=== PATIENT | female | born 1980 | race Caucasian/White ===

== ENCOUNTER 2020-11-07 22:05 | Inpatient (IN) | payer OTHER ==
[2020-11-07] MEDS ORDERED: SODIUM CHLORIDE 1,000 ML IV STA (22:48)
[2020-11-07] MEDS ORDERED: ONDANSETRON 4 MG/2 ML VIAL IVPUSH ONE (22:49)
[2020-11-07] MEDS ORDERED: morphine CARPU-JECT 4 MG/1 ML DISP.SYRIN IVPUSH ONE (22:49)
[2020-11-07] MEDS ORDERED: morphine SULFATE 4 MG/ML VIAL ONE (22:58)
[2020-11-07] MEDS ORDERED: ONDANSETRON 4 MG/2 ML VIAL ONE (22:59)
[2020-11-07 23:19] LABS: HEMATOCRIT 34.9 % (32.4-45.2); HEMOGLOBIN 13.6 GM/dL (10.7-15.3); MCH 34.5 pg (25.7-33.7); MCHC 38.9 g/dl (32.0-36.0); MEAN CELL VOLUME 88.8 fl (80-96); PLATELET COUNT 490 K/MM3 (134-434); RBC 3.93 M/mm3 (3.60-5.2); RDW 13.1 % (11.6-15.6); WHITE BLOOD COUNT 11.3 K/mm3 (4.0-10.0)
[2020-11-07 23:28] LABS: URINE APPEARANCE CLEAR; URINE BILIRUBIN NEGATIVE (NEGATIVE); URINE COLOR YELLOW; URINE GLUCOSE (UA) NEGATIVE (NEGATIVE); URINE KETONE NEGATIVE (NEGATIVE); URINE LEUK ESTERASE NEGATIVE (NEGATIVE); URINE NITRITE NEGATIVE (NEGATIVE); URINE PROTEIN NEGATIVE (NEGATIVE); URINE UROBILINOGEN 0.2 mg/dL (0.2-1.0)
[2020-11-07 23:57] LABS: INR 0.88 (0.83-1.09); PROTHROMBIN TIME (PATIENT) 10.7 SEC (9.7-13.0)
[2020-11-08 00:31] LABS: CHLORIDE 92 mmol/L (98-107); SODIUM 127 mmol/L (136-145)
[2020-11-08 00:37] LABS: ALBUMIN 3.3 g/dl (3.4-5.0); ANION GAP 12 MMOL/L (8-16); CO2 23 mmol/L (21-32)
[2020-11-08 00:38] LABS: GLUCOSE,RANDOM 185 mg/dL (74-106); LIPASE 453 U/L (73-393)
[2020-11-08 00:41] LABS: BILIRUBIN,TOTAL 1.1 mg/dL (0.2-1); CREATININE 0.7 mg/dL (0.55-1.3)
[2020-11-08 01:36] LABS: ALK PHOS 57 U/L (45-117); BLOOD UREA NITROGEN 11.9 mg/dL (7-18); CALCIUM 8.2 mg/dL (8.5-10.1); TOT PROT 7.5 g/dl (6.4-8.2)
[2020-11-08] MEDS ORDERED: morphine CARPU-JECT 4 MG/1 ML DISP.SYRIN IVPUSH ONE (02:25)
[2020-11-08] MEDS ORDERED: SODIUM CHLORIDE 0.9% 500 ML INFUS.BAG IV ONE (02:38)
[2020-11-08] MEDS ORDERED: morphine SULFATE 4 MG/ML VIAL ONE (03:39)
[2020-11-08] MEDS ORDERED: KETOROLAC TROMETHAMINE 15 MG/ML VIAL IVPUSH ONE (04:34)
[2020-11-08] MEDS ORDERED: SODIUM CHLORIDE 1,000 ML IV SCH ×2 (04:45→06:02)
[2020-11-08 05:46] LABS: TRIGLYCERIDES > 4000 mg/dL (0-150)
[2020-11-08 05:59] LABS: CHLORIDE 97 mmol/L (98-107); POTASSIUM 4.2 mmol/L (3.5-5.1); SODIUM 132 mmol/L (136-145)
[2020-11-08 06:01] LABS: ALBUMIN 2.9 g/dl (3.4-5.0); CALCIUM 7.5 mg/dL (8.5-10.1); GLUCOSE,RANDOM 167 mg/dL (74-106)
[2020-11-08 06:02] LABS: ANION GAP 7 MMOL/L (8-16); CO2 28 mmol/L (21-32); MAGNESIUM 1.6 mg/dL (1.8-2.4)
[2020-11-08] MEDS ORDERED: MAGNESIUM SULF 50% (8.12 MEQ/2 ML-1 GM VIAL) IVPB ONE (06:05)
[2020-11-08 06:06] LABS: CREATININE 0.5 mg/dL (0.55-1.3); PHOSPHOROUS 4.3 mg/dL (2.5-4.9)
[2020-11-08 06:07] LABS: ALK PHOS 48 U/L (45-117); BILIRUBIN,TOTAL 0.7 mg/dL (0.2-1); LDL CHOLESTEROL (ONLY SJRH) 87 mg/dL (5-100)
[2020-11-08 06:08] LABS: HDL CHOLESTEROL 35 mg/dL (40-60)
[2020-11-08] MEDS ORDERED: MORPHINE SULFATE 2 MG/ML VIAL IVPUSH PRN (06:09)
[2020-11-08] MEDS ORDERED: ONDANSETRON 4 MG/2 ML VIAL IVPUSH PRN (06:09)
[2020-11-08] MEDS ORDERED: INSULIN DRIP - PLEASE ORDER UNDER SETS NR ONE (06:12)
[2020-11-08] MEDS ORDERED: DEXTROSE 50%-WATER - 25 GM/50 ML VIAL IVPUSH PRN (06:13)
[2020-11-08] MEDS ORDERED: MAGNESIUM SULF 50% (8.12 MEQ/2 ML-1 GM VIAL) ONE (06:14)
[2020-11-08] MEDS ORDERED: LACTATED RINGERS SOLUTION 1,000 ML/1,000 ML INFUS.BAG IV SCH (06:15)
[2020-11-08 06:18] LABS: HEMATOCRIT 29.4 % (32.4-45.2); HEMOGLOBIN 11.9 GM/dL (10.7-15.3); MCH 35.7 pg (25.7-33.7); MCHC 40.3 g/dl (32.0-36.0); MEAN CELL VOLUME 88.4 fl (80-96); MEAN PLT VOLUME 10.7 fl (7.5-11.1); PLATELET COUNT 620 K/MM3 (134-434); RBC 3.33 M/mm3 (3.60-5.2); RDW 13.9 % (11.6-15.6); WHITE BLOOD COUNT 12.6 K/mm3 (4.0-10.0)
[2020-11-08 06:19] LABS: BLOOD UREA NITROGEN 10.1 mg/dL (7-18); CHOLESTEROL 393 mg/dL (50-200); TOT PROT 6.5 g/dl (6.4-8.2); TRIGLYCERIDES > 4000 mg/dL (0-150)
[2020-11-08] MEDS ORDERED: MORPHINE SULFATE 2 MG/ML VIAL ONE ×2 (07:40→11:16)
[2020-11-08] MEDS ORDERED: DEXTROSE 5%-LACTATED RINGERS 1,000 ML IV SCH (08:30)
[2020-11-08] MEDS: D5-LR+20 MEQ KCL - 20 MEQ/1,000 ML INFUS.BAG IV SCH (09:00)
[2020-11-08] MEDS: INSULIN REGULAR 100 UNITS in SODIUM CHLORIDE 99 ML IVPB SCH (09:24)
[2020-11-08] MEDS ORDERED: PANTOPRAZOLE SODIUM 40 MG VIAL IVPUSH SCH (10:00)
[2020-11-08 10:44] LABS: CHLORIDE 96 mmol/L (98-107); POTASSIUM 4.1 mmol/L (3.5-5.1); SODIUM 130 mmol/L (136-145)
[2020-11-08 10:46] LABS: ANION GAP 8 MMOL/L (8-16); CO2 26 mmol/L (21-32); GLUCOSE,RANDOM 156 mg/dL (74-106)
[2020-11-08 10:50] LABS: CREATININE 0.5 mg/dL (0.55-1.3)
[2020-11-08 11:00] LABS: BLOOD UREA NITROGEN 8.6 mg/dL (7-18); TRIGLYCERIDES > 4000 mg/dL (0-150)
[2020-11-08] MEDS: morphine SULFATE 4 MG/ML VIAL IVPUSH PRN ×3 (11:15→21:46)
[2020-11-08] MEDS: ENOXAPARIN NA (PORCINE) 40 MG/0.4 ML DISP.SYRIN SQ SCH (12:38)
[2020-11-08] MEDS: METOCLOPRAMIDE HCL INJECTION 10 MG/2 ML VIAL IVPUSH PRN (16:09)
[2020-11-08] MEDS ORDERED: METOCLOPRAMIDE HCL INJECTION 10 MG/2 ML VIAL ONE (16:12)
[2020-11-08 17:07] VITALS: BMI 26.4
[2020-11-08] MEDS: MUPIROCIN 2% TOPICAL OINTMENT FOR DECOLONIZATION NS SCH ×2 (17:13→23:17)
[2020-11-08] MEDS: CHLORHEXIDINE GLUCONATE 4% CLEANSER FOR DECOLONIZATION TP SCH (21:47)
[2020-11-09] MEDS: METOCLOPRAMIDE HCL INJECTION 10 MG/2 ML VIAL IVPUSH PRN (00:15)
[2020-11-09 07:30] LABS: HEMATOCRIT 29.8 % (32.4-45.2); HEMOGLOBIN 10.4 GM/dL (10.7-15.3); MCH 31.1 pg (25.7-33.7); MCHC 34.9 g/dl (32.0-36.0); MEAN CELL VOLUME 89.1 fl (80-96); MEAN PLT VOLUME 7.9 fl (7.5-11.1); PLATELET COUNT 345 K/MM3 (134-434); RBC 3.34 M/mm3 (3.60-5.2); WHITE BLOOD COUNT 7.4 K/mm3 (4.0-10.0)
[2020-11-09] MEDS: D5-LR+20 MEQ KCL - 20 MEQ/1,000 ML INFUS.BAG IV SCH ×2 (07:52→10:39)
[2020-11-09 08:00] LABS: POTASSIUM 4.1 mmol/L (3.5-5.1)
[2020-11-09 08:05] LABS: ALBUMIN 2.8 g/dl (3.4-5.0); BLOOD UREA NITROGEN 3.3 mg/dL (7-18); CALCIUM 8.1 mg/dL (8.5-10.1); MAGNESIUM 1.7 mg/dL (1.8-2.4)
[2020-11-09 08:08] LABS: CREATININE 0.5 mg/dL (0.55-1.3); PHOSPHOROUS 3.2 mg/dL (2.5-4.9)
[2020-11-09 08:09] LABS: BILIRUBIN,TOTAL 0.8 mg/dL (0.2-1)
[2020-11-09] MEDS ORDERED: MAGNESIUM SULF 50% (8.12 MEQ/2 ML-1 GM VIAL) IVPB ONE (08:19)
[2020-11-09] MEDS ORDERED: MAGNESIUM 1GM/D5W - 1 GM/100 ML IVPB IVPB ONE (08:30)
[2020-11-09] MEDS: MUPIROCIN 2% TOPICAL OINTMENT FOR DECOLONIZATION NS SCH ×2 (10:17→22:05)
[2020-11-09] MEDS: ENOXAPARIN NA (PORCINE) 40 MG/0.4 ML DISP.SYRIN SQ SCH (10:17)
[2020-11-09] MEDS: morphine SULFATE 4 MG/ML VIAL IVPUSH PRN ×4 (10:23→22:28)
[2020-11-09] MEDS: INSULIN REGULAR 100 UNITS in SODIUM CHLORIDE 99 ML IVPB SCH (18:50)
[2020-11-09] MEDS: CHLORHEXIDINE GLUCONATE 4% CLEANSER FOR DECOLONIZATION TP SCH (22:05)
[2020-11-10] MEDS: morphine SULFATE 4 MG/ML VIAL IVPUSH PRN ×5 (06:30→22:01)
[2020-11-10 07:26] LABS: BASO % 0.3 % (0-2.0); EOS % 5.1 % (0-4.5); HEMATOCRIT 30.8 % (32.4-45.2); HEMOGLOBIN 10.2 GM/dL (10.7-15.3); LYMPH % 26.2 % (8-40); MCH 29.5 pg (25.7-33.7); MEAN CELL VOLUME 89.5 fl (80-96); MONO % 8.3 % (3.8-10.2); NEUT % 60.1 % (42.8-82.8); PLATELET COUNT 352 K/MM3 (134-434); RBC 3.44 M/mm3 (3.60-5.2); RDW 13.4 % (11.6-15.6); WHITE BLOOD COUNT 6.3 K/mm3 (4.0-10.0)
[2020-11-10 07:28] LABS: POTASSIUM 4.2 mmol/L (3.5-5.1)
[2020-11-10 07:30] LABS: CALCIUM 8.7 mg/dL (8.5-10.1)
[2020-11-10 07:31] LABS: ALBUMIN 2.9 g/dl (3.4-5.0); MAGNESIUM 1.8 mg/dL (1.8-2.4)
[2020-11-10 07:34] LABS: CREATININE 0.4 mg/dL (0.55-1.3)
[2020-11-10 07:35] LABS: BILIRUBIN,TOTAL 0.3 mg/dL (0.2-1)
[2020-11-10 07:36] LABS: TOT PROT 6.1 g/dl (6.4-8.2)
[2020-11-10 08:38] LABS: BLOOD UREA NITROGEN 2.5 mg/dL (7-18)
[2020-11-10] MEDS: INSULIN REGULAR 100 UNITS in SODIUM CHLORIDE 99 ML IVPB SCH (10:27)
[2020-11-10] MEDS: ENOXAPARIN NA (PORCINE) 40 MG/0.4 ML DISP.SYRIN SQ SCH (10:28)
[2020-11-10] MEDS: MUPIROCIN 2% TOPICAL OINTMENT FOR DECOLONIZATION NS SCH ×2 (10:28→21:19)
[2020-11-10] MEDS: D5-LR+20 MEQ KCL - 20 MEQ/1,000 ML INFUS.BAG IV SCH ×3 (10:29→22:40)
[2020-11-10] MEDS ORDERED: ACETAMINOPHEN 1000 MG/100 ML VIAL (NON FORMULARY) IVPB ONE (13:00)
[2020-11-10] MEDS: CHLORHEXIDINE GLUCONATE 4% CLEANSER FOR DECOLONIZATION TP SCH (21:19)
[2020-11-10] MEDS: ATORVASTATIN CA 40 MG TABLET (FP) PO SCH (21:19)
[2020-11-11] MEDS: morphine SULFATE 4 MG/ML VIAL IVPUSH PRN ×5 (01:10→23:00)
[2020-11-11] MEDS: D5-LR+20 MEQ KCL - 20 MEQ/1,000 ML INFUS.BAG IV SCH ×4 (04:19→21:22)
[2020-11-11] MEDS: INSULIN REGULAR 100 UNITS in SODIUM CHLORIDE 99 ML IVPB SCH (06:30)
[2020-11-11 07:14] LABS: BASO % 0.5 % (0-2.0); EOS % 5.7 % (0-4.5); HEMATOCRIT 30.7 % (32.4-45.2); HEMOGLOBIN 10.2 GM/dL (10.7-15.3); LYMPH % 29.9 % (8-40); MCH 29.4 pg (25.7-33.7); MCHC 33.1 g/dl (32.0-36.0); MEAN CELL VOLUME 88.8 fl (80-96); MEAN PLT VOLUME 7.7 fl (7.5-11.1); MONO % 7.9 % (3.8-10.2); PLATELET COUNT 403 K/MM3 (134-434); RBC 3.46 M/mm3 (3.60-5.2); RDW 13.1 % (11.6-15.6)
[2020-11-11 07:15] LABS: CHLORIDE 103 mmol/L (98-107); POTASSIUM 4.1 mmol/L (3.5-5.1); SODIUM 135 mmol/L (136-145)
[2020-11-11 07:24] LABS: BLOOD UREA NITROGEN 5.3 mg/dL (7-18); CALCIUM 9.1 mg/dL (8.5-10.1)
[2020-11-11 07:25] LABS: ANION GAP 8 MMOL/L (8-16); CO2 24 mmol/L (21-32); GLUCOSE,RANDOM 119 mg/dL (74-106); MAGNESIUM 1.5 mg/dL (1.8-2.4)
[2020-11-11 07:27] LABS: CREATININE 0.5 mg/dL (0.55-1.3); SGPT/ALT 77 U/L (13-61)
[2020-11-11 07:28] LABS: ALK PHOS 51 U/L (45-117); PHOSPHOROUS 4.6 mg/dL (2.5-4.9); SGOT/AST 39 U/L (15-37)
[2020-11-11 07:29] LABS: BILIRUBIN,TOTAL 0.4 mg/dL (0.2-1); TOT PROT 6.4 g/dl (6.4-8.2); TRIGLYCERIDES > 1000 mg/dL (0-150)
[2020-11-11] MEDS ORDERED: PT OWN MED DRAWER 7, Y5N ONE (09:06)
[2020-11-11] MEDS: FENOFIBRIC ACID 135 MG CAP PO SCH (09:43)
[2020-11-11] MEDS: ENOXAPARIN NA (PORCINE) 40 MG/0.4 ML DISP.SYRIN SQ SCH (09:43)
[2020-11-11] MEDS: MUPIROCIN 2% TOPICAL OINTMENT FOR DECOLONIZATION NS SCH ×2 (09:43→21:23)
[2020-11-11] MEDS: ATORVASTATIN CA 40 MG TABLET (FP) PO SCH (21:24)
[2020-11-11] MEDS: CHLORHEXIDINE GLUCONATE 4% CLEANSER FOR DECOLONIZATION TP SCH (21:24)
[2020-11-12] MEDS: morphine SULFATE 4 MG/ML VIAL IVPUSH PRN ×4 (02:50→21:28)
[2020-11-12] MEDS: D5-LR+20 MEQ KCL - 20 MEQ/1,000 ML INFUS.BAG IV SCH ×2 (03:05→09:55)
[2020-11-12] MEDS: INSULIN REGULAR 100 UNITS in SODIUM CHLORIDE 99 ML IVPB SCH (06:43)
[2020-11-12 07:05] LABS: HEMATOCRIT 31.8 % (32.4-45.2); HEMOGLOBIN 10.7 GM/dL (10.7-15.3); MCHC 33.5 g/dl (32.0-36.0); MEAN CELL VOLUME 89.6 fl (80-96); MEAN PLT VOLUME 7.8 fl (7.5-11.1); PLATELET COUNT 438 K/MM3 (134-434); RBC 3.55 M/mm3 (3.60-5.2); RDW 13.2 % (11.6-15.6); WHITE BLOOD COUNT 6.6 K/mm3 (4.0-10.0)
[2020-11-12 07:19] LABS: POTASSIUM 4.2 mmol/L (3.5-5.1)
[2020-11-12 07:22] LABS: MAGNESIUM 1.5 mg/dL (1.8-2.4)
[2020-11-12 07:25] LABS: CREATININE 0.5 mg/dL (0.55-1.3); PHOSPHOROUS 5.1 mg/dL (2.5-4.9)
[2020-11-12 07:29] LABS: BILIRUBIN,DIRECT 0.1 mg/dL (0.0-0.2)
[2020-11-12 07:31] LABS: BILIRUBIN,TOTAL 0.5 mg/dL (0.2-1); TOT PROT 6.4 g/dl (6.4-8.2)
[2020-11-12] MEDS: MAGNESIUM 1GM/D5W - 1 GM/100 ML IVPB IVPB SCH ×2 (09:53→10:30)
[2020-11-12] MEDS: FENOFIBRIC ACID 135 MG CAP PO SCH (09:54)
[2020-11-12] MEDS: MUPIROCIN 2% TOPICAL OINTMENT FOR DECOLONIZATION NS SCH ×2 (09:54→21:28)
[2020-11-12] MEDS: ENOXAPARIN NA (PORCINE) 40 MG/0.4 ML DISP.SYRIN SQ SCH (09:54)
[2020-11-12] MEDS ORDERED: INSULIN REGULAR 100 UNITS in SODIUM CHLORIDE 99 ML IVPB SCH (11:27)
[2020-11-12] MEDS ORDERED: DEXTROSE 10%-WATER - 1,000 ML IV SCH (14:00)
[2020-11-12 19:47] LABS: ALBUMIN 3.3 g/dl (3.4-5.0); BILIRUBIN,TOTAL 0.3 mg/dL (0.2-1); BLOOD UREA NITROGEN 5.4 mg/dL (7-18); CALCIUM 9.4 mg/dL (8.5-10.1); CREATININE 0.6 mg/dL (0.55-1.3); POTASSIUM 3.9 mmol/L (3.5-5.1); TOT PROT 6.8 g/dl (6.4-8.2)
[2020-11-12] MEDS: CHLORHEXIDINE GLUCONATE 4% CLEANSER FOR DECOLONIZATION TP SCH (21:28)
[2020-11-12] MEDS: ATORVASTATIN CA 40 MG TABLET (FP) PO SCH (21:28)
[2020-11-13] MEDS: morphine SULFATE 4 MG/ML VIAL IVPUSH PRN ×4 (00:53→21:14)
[2020-11-13 07:10] LABS: BASO % 0.9 % (0-2.0); EOS % 5.7 % (0-4.5); HEMATOCRIT 30.6 % (32.4-45.2); HEMOGLOBIN 10.5 GM/dL (10.7-15.3); LYMPH % 27.3 % (8-40); MCH 30.3 pg (25.7-33.7); MCHC 34.2 g/dl (32.0-36.0); MEAN CELL VOLUME 88.5 fl (80-96); MEAN PLT VOLUME 7.6 fl (7.5-11.1); MONO % 10.7 % (3.8-10.2); NEUT % 55.4 % (42.8-82.8); PLATELET COUNT 463 K/MM3 (134-434); RBC 3.45 M/mm3 (3.60-5.2); RDW 13.2 % (11.6-15.6); WHITE BLOOD COUNT 7.7 K/mm3 (4.0-10.0)
[2020-11-13 07:28] LABS: POTASSIUM 4.5 mmol/L (3.5-5.1)
[2020-11-13 07:37] LABS: ALBUMIN 3.1 g/dl (3.4-5.0); BLOOD UREA NITROGEN 7.8 mg/dL (7-18); CALCIUM 8.8 mg/dL (8.5-10.1)
[2020-11-13 07:39] LABS: BILIRUBIN,TOTAL 0.2 mg/dL (0.2-1); TOT PROT 6.3 g/dl (6.4-8.2)
[2020-11-13 07:40] LABS: CREATININE 0.6 mg/dL (0.55-1.3); PHOSPHOROUS 4.6 mg/dL (2.5-4.9)
[2020-11-13] MEDS: ENOXAPARIN NA (PORCINE) 40 MG/0.4 ML DISP.SYRIN SQ SCH (10:22)
[2020-11-13] MEDS: FENOFIBRIC ACID 135 MG CAP PO SCH (10:51)
[2020-11-13] MEDS: D5-LR+20 MEQ KCL - 20 MEQ/1,000 ML INFUS.BAG IV SCH (12:23)
[2020-11-13] MEDS: INSULIN REGULAR 100 UNITS in SODIUM CHLORIDE 99 ML IVPB SCH (12:26)
[2020-11-13] MEDS: CHLORHEXIDINE GLUCONATE 4% CLEANSER FOR DECOLONIZATION TP SCH (21:15)
[2020-11-13] MEDS: ATORVASTATIN CA 40 MG TABLET (FP) PO SCH (21:15)
[2020-11-13] MEDS: diphenhydrAMINE HCL 25 MG CAPSULE (FP) PO PRN (21:15)
[2020-11-14] MEDS: INSULIN REGULAR 100 UNITS in SODIUM CHLORIDE 99 ML IVPB SCH (07:23)
[2020-11-14] MEDS ORDERED: PT OWN MED DRAWER 7, Y5N ONE (09:50)
[2020-11-14] MEDS: ENOXAPARIN NA (PORCINE) 40 MG/0.4 ML DISP.SYRIN SQ SCH (09:50)
[2020-11-14] MEDS: FENOFIBRIC ACID 135 MG CAP PO SCH (09:51)
[2020-11-14] MEDS: D5-LR+20 MEQ KCL - 20 MEQ/1,000 ML INFUS.BAG IV SCH ×2 (09:52→21:00)
[2020-11-14 09:56] LABS: BASO % 1.2 % (0-2.0); EOS % 5.3 % (0-4.5); HEMATOCRIT 32.7 % (32.4-45.2); HEMOGLOBIN 10.9 GM/dL (10.7-15.3); LYMPH % 27.5 % (8-40); MCH 30.1 pg (25.7-33.7); MCHC 33.4 g/dl (32.0-36.0); MEAN CELL VOLUME 90.2 fl (80-96); MEAN PLT VOLUME 7.7 fl (7.5-11.1); MONO % 9.8 % (3.8-10.2); NEUT % 56.2 % (42.8-82.8); PLATELET COUNT 473 K/MM3 (134-434); RBC 3.62 M/mm3 (3.60-5.2); RDW 13.1 % (11.6-15.6); WHITE BLOOD COUNT 8.4 K/mm3 (4.0-10.0)
[2020-11-14 10:01] LABS: POTASSIUM 4.5 mmol/L (3.5-5.1)
[2020-11-14 10:04] LABS: ALBUMIN 3.2 g/dl (3.4-5.0); BLOOD UREA NITROGEN 8.2 mg/dL (7-18); CALCIUM 9.2 mg/dL (8.5-10.1); MAGNESIUM 1.6 mg/dL (1.8-2.4)
[2020-11-14 10:07] LABS: CREATININE 0.6 mg/dL (0.55-1.3); PHOSPHOROUS 4.8 mg/dL (2.5-4.9)
[2020-11-14 10:09] LABS: BILIRUBIN,TOTAL 0.2 mg/dL (0.2-1); TOT PROT 6.3 g/dl (6.4-8.2)
[2020-11-14] MEDS ORDERED: BENZOCAINE/MENTH/CETYLPYRD CL 1 EACH LOZENGE MM PRN (10:45)
[2020-11-14 11:48] LABS: ANISOCYTOSIS 0; MACROCYTOSIS 0; PLATELET ESTIMATE NORMAL
[2020-11-14] MEDS: FLUTICASONE PROP 0.05% 16 GM NASAL SPRAY NS SCH ×2 (13:53→22:13)
[2020-11-14] MEDS: diphenhydrAMINE HCL 25 MG CAPSULE (FP) PO PRN (22:12)
[2020-11-14] MEDS: ATORVASTATIN CA 40 MG TABLET (FP) PO SCH (22:12)
[2020-11-14] MEDS: CHLORHEXIDINE GLUCONATE 4% CLEANSER FOR DECOLONIZATION TP SCH (22:12)
[2020-11-15] MEDS: D5-LR+20 MEQ KCL - 20 MEQ/1,000 ML INFUS.BAG IV SCH ×2 (03:00→06:02)
[2020-11-15] MEDS ORDERED: guaiFENesin 200 MG/10 ML 10 ML UNIT-DOSE CUPS PO PRN (05:39)
[2020-11-15 08:31] VITALS: PULSE 80
[2020-11-15] MEDS ORDERED: PT OWN MED DRAWER 7, Y5N ONE (09:24)
[2020-11-15] MEDS: FENOFIBRIC ACID 135 MG CAP PO SCH (09:33)
[2020-11-15] MEDS: FLUTICASONE PROP 0.05% 16 GM NASAL SPRAY NS SCH (09:36)
[2020-11-15 11:58] VITALS: BP 117/71; TEMP 98.5
== END 2020-11-15 14:30 | disposition home or self-care (01) | DRG 282 ==
LOC: JER 22:05 → JERBED 11-08 01:59 → JICU 11-08 16:42
PROVIDERS: ADMIT Internal Medicine; ATTEND Internal Medicine Pulmonary Disease
DX: K85.80 Other acute pancreatitis without necrosis or infection (principal); E44.0 Moderate protein-calorie malnutrition; E87.1 Hypo-osmolality and hyponatremia; F10.20 Alcohol dependence, uncomplicated; E78.1 Pure hyperglyceridemia; D72.829 Elevated white blood cell count, unspecified; E78.49 Other hyperlipidemia; F17.210 Nicotine dependence, cigarettes, uncomplicated
CPT/HCPCS: 36415; 71045-TC-FY; 74177-TC; 80048; 80053; 80061; 80076; 80307; 81003; 82962; 83605; 83690; 83721; 83735; 84100; 84478; 84484; 84703; 85025; 85027; 85610; 93005; 93010; 94010; 99285-25; C9803; G0480; J0131; Q9967; U0003